=== PATIENT | male | born 1940 | race Caucasian/White ===

== ENCOUNTER 2018-10-06 01:43 | Observation (INO) | payer BC ==
[~2018-10-06] VITALS: Ht 167.6 cm; Wt 81.6 kg
[2018-10-06] VITALS (7 sets, daily range): BP systolic 146–161; BP diastolic 67–94
--- OUTSIDE RECORDS SUMMARY | 2018-10-06 01:46 | XMS REPORT | Summary of Care ---
Author Author [facility] Internal Medicine [facility] [place] [facility] Internal Medicine [facility] [place] Address Unknown Phone Unavailable Encounter MIRZA Lopez(FIN) [phone] Date(s): 08/30/17 - 08/31/17 [facility] Internal Medicine [facility] [place] [address] [facility] [address] [place] [address]- Vital Signs No data available for this section Problem List Condition Effective Dates Status Health Status Informant Angina(Confirmed) Resolved Benign essential Active hypertension1, 2, 3, 4, 5 CAD - Coronary Resolved artery disease(Confirmed) Colitis(Confirmed) Resolved Congestive heart Active failure6, 7 Coronary Active arteriosclerosis8, 9 Crohn Resolved disease(Confirmed) Crohn's pqvydvt33, Active 11 Khyjclo03, 13 08/20/13 Active Hypercholesterolemia Resolved (Confirmed) Ppafcbaypbnezo49, Active 15, 16, 17, 18 Rbvscaogncvite55, Active 20, 21, 22, 23 Iron deficiency 09/25/11 Active gblmuq99, 25 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 2Data migrated from [employer] on 04/20/15. 3Data migrated from [employer] on 04/20/15. 4Data migrated from [employer] on 03/15/15. 5Data migrated from [employer] on 03/15/15. 6Data migrated from [employer] on 05/23/15. 7Data migrated from [employer] on 03/15/15. 8Data migrated from [employer] on 05/23/15. 9Data migrated from [employer] on 03/15/15. 10Data migrated from [employer] on 05/23/15. 11Data migrated from [employer] on 03/15/15. 12Data migrated from [employer] on 05/23/15. 13Data migrated from [employer] on 03/15/15. 14Data migrated from [employer] on 05/23/15. 15Data migrated from [employer] on 04/20/15. 16Data migrated from [employer] on 04/20/15. 17Data migrated from [employer] on 03/15/15. 18Data migrated from [employer] on 03/15/15. 19Data migrated from [employer] on 05/23/15. 20Data migrated from [employer] on 04/20/15. 21Data migrated from [employer] on 04/20/15. 22Data migrated from [employer] on 03/15/15. 23Data migrated from [employer] on 03/15/15. 24Data migrated from [employer] on 05/23/15. 25Data migrated from [employer] on 03/15/15. 26Data migrated from [employer] on 05/23/15. 27Data migrated from [employer] on 04/20/15. 28Data migrated from [employer] on 04/20/15. 29Data migrated from [employer] on 03/15/15. 30Data migrated from [employer] on 03/15/15. 31Data migrated from [employer] on 05/23/15. 32Data migrated from [employer] on 04/20/15. 33Data migrated from [employer] on 04/20/15. 34Data migrated from [employer] on 03/15/15. 35Data migrated from [employer] on 03/15/15. 36Data migrated from [employer] on 05/23/15. 37Data migrated from [employer] on 04/20/15. 38Data migrated from [employer] on 04/20/15. 39Data migrated from [employer] on 03/15/15. 40Data migrated from [employer] on 03/15/15. Allergies, Adverse Reactions, Alerts Substance Reaction Severity Status pork Active soy Diarrhea Active oranges Active banana Active chocolate Active mercaptopurine1 Active Purinethol Active Food Chocolate2 Active Food Citrus3 Active Food Pork4 Active Other Food Allergy5, 6 Active Md 60 Active Food Soybean7 Active canagliflozin8 Active 1Data migrated from [employer] on 02/10/15. Originally documented as PURINETHOL. 2Data migrated from [employer] on 12/09/15. Originally documented as CHOCOLATE. 3Data migrated from [employer] on 12/09/15. Originally documented as ORANGES. 4Data migrated from [employer] on 12/09/15. Originally documented as PORK. 5Data migrated from [employer] on 12/09/15. Originally documented as ONION. 6Data migrated from [employer] on 12/09/15. Originally documented as BANANA. 7Data migrated from [employer] on 12/09/15. Originally documented as SOY. 8Data migrated from [employer] on 02/10/15. Originally documented as INVOKANA. Medications Humalog Kwik Pen 100 units/mL subcutaneous injection See Instructions, # 15 unknown unit, INJECT 30 UNITS SUB-Q TWICE DAILY, Pharmacy : [facility] Start Date: 08/30/17 Status: Ordered Results No data available for this section Immunizations No data available for this section Procedures Procedure Date Related Diagnosis Body Site Stent placement1 Tonsillectomy 73304 Social History Social History Type Response Substance Abuse Use: None. Exercise Exercise duration: 30. Exercise frequency: Daily. Exercise type: Walking, fishing, boating,arm and legs stretching.. Employment/School Status: Employed. Work/School description: Occupation: Retired at [employer]. Other: Maritial Status: to Cleop[employer], Retired Children: none Pets; 4 cats Surrogate Decision Maker: both. Alcohol Never Smoking Status Never smoker; Exposure to Tobacco Smoke None; Cigarette Smoking Last 365 Days No; Reg Smoking Cessation Counseling No Assessment and Plan No data available for this section
--- OUTSIDE RECORDS SUMMARY | 2018-10-06 01:46 | XMS REPORT | Summary of Care ---
Author Author [facility] Internal Medicine [facility] [place] Organization [facility] Internal Medicine [facility] [place] Address Unknown Phone Unavailable Encounter HQ John(FIN) [phone] Date(s): 04/09/18 - 04/10/18 [facility] Internal Medicine [facility] [place] [address] [facility] [address] [place] [address]- Vital Signs No data available for this section Problem List Condition Effective Dates Status Health Status Informant Angina(Confirmed) Resolved Benign essential Active hypertension1, 2, 3, 4, 5 CAD - Coronary Resolved artery disease(Confirmed) Colitis(Confirmed) Resolved Congestive heart Active failure6, 7 Coronary Active arteriosclerosis8, 9 Crohn Resolved disease(Confirmed) Crohn's hnwigys35, Active 11 Waoplvg44, 13 08/20/13 Active Hypercholesterolemia Resolved (Confirmed) Urwpczlppsgvfw64, Active 15, 16, 17, 18 Ggsjpcxzkasrii89, Active 20, 21, 22, 23 Iron deficiency 09/25/11 Active otnsjc73, 25 Mixed Active hyperlipidemia(Confi rmed) 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 Originally documented as INVOKANA. Medications Tirosint 100 mcg (0.1 mg) oral capsule 100 microgram=1 cap, PO, Daily, dispense brand Tirosint, # 90 cap, 0 Refill( s), FANNY, Pharmacy: [facility] Start Date: 04/09/18 Stop Date: 07/08/18 Status: Ordered Results No data available for this section Immunizations No data available for this section Procedures Procedure Date Related Diagnosis Body Site Status Eye examination1 12/13/16 Completed Stent placement2 Completed Tonsillectomy Completed 1Diabetic Eye exam-Cataracts [place]. 60678 Social History Social History Type Response Substance [...] Days No; Reg Smoking Cessation Counseling No entered on: 11/05/17 Assessment and Plan No data available for this section
--- OUTSIDE RECORDS SUMMARY | 2018-10-06 01:46 | XMS REPORT | Summary of Care ---
Author Author [facility] Internal Medicine [facility] [place] Organization [facility] Internal Medicine [facility] [place] Address Unknown Phone Unavailable Encounter MIRZA Lopez(FIN) [phone] Date(s): 11/08/17 - 11/09/17 [facility] Internal Medicine [facility] [place] [address] [facility] [address] [place] [address]- Vital Signs No data available for this section Problem List Condition Effective Dates Status Health Status Informant Angina(Confirmed) Resolved Benign essential Active hypertension1, 2, 3, 4, 5 CAD - Coronary Resolved artery disease(Confirmed) Colitis(Confirmed) Resolved Congestive heart Active failure6, 7 Coronary Active arteriosclerosis8, 9 Crohn Resolved disease(Confirmed) Crohn's mcuqsye07, Active 11 Anoxeki37, 13 08/20/13 Active Hypercholesterolemia Resolved (Confirmed) Fzrmtlfheqtjmj40, Active 15, 16, 17, 18 Fqlsbqtrfbtsmg52, Active 20, 21, 22, 23 Iron deficiency 09/25/11 Active ohhwkw73, 25 Mixed Active hyperlipidemia(Confi rmed) 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 Originally documented as INVOKANA. Medications Tresiba FlexTouch 100 units/mL subcutaneous solution 15 unit, SUB-Q, Daily, Please start with 10 units and increase every 3 days by 2 units until average sugars <110., # 1 box, 5 Refill(s), Pharmacy: [facility] Start Date: 11/21/17 Stop Date: 05/20/18 Status: Ordered Results No data available for this section Immunizations No data available for this section Procedures Procedure Date Related Diagnosis Body Site Status Eye examination1 12/13/16 Completed Stent placement2 Completed Tonsillectomy Completed 1Diabetic Eye exam-Cataracts [place]. [address]342 Social History Social History Type Response Substance [...]
--- OUTSIDE RECORDS SUMMARY | 2018-10-06 01:46 | XMS REPORT | Summary of Care ---
Author Author [facility] Internal Medicine [facility] [place] Organization [facility] Internal Medicine [facility] [place] Address Unknown Phone Unavailable Encounter MIRZA Lopez(FIN) [id number] Date(s): 10/28/17 - 10/29/17 [facility] Internal Medicine [facility] [place] [address] [facility] [address] [place] [address]- Vital Signs No data available for this section Problem List Condition Effective Dates Status Health Status Informant Angina(Confirmed) Resolved Benign essential Active hypertension1, 2, 3, 4, 5 CAD - Coronary Resolved artery disease(Confirmed) Colitis(Confirmed) Resolved Congestive heart Active failure6, 7 Coronary Active arteriosclerosis8, 9 Crohn Resolved disease(Confirmed) Crohn's , Active 11 Jyowxhj86, 13 08/20/13 Active Hypercholesterolemia Resolved (Confirmed) Djhihccmniripl29, Active 15, 16, 17, 18 Ojuqkriwyibexe79, Active 20, 21, 22, 23 Iron deficiency 09/25/11 Active rmgevk67, 25 Mixed Active hyperlipidemia(Confi rmed) 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 Originally documented as INVOKANA. Medications No data available for this section Results ELECTROLYTES Most recent to 2 oldest [Reference Range]: Sodium Lvl [135-146 141 mMol/L 141 mMol/L mMol/L] *N* *N* (10/28/17 1:42 PM) (10/28/17 1:42 PM) Potassium Lvl 4.6 mMol/L 4.6 mMol/L [3.5-5.3 mMol/L] *N* *N* (10/28/17 1:42 PM) (10/28/17 1:42 PM) Chloride Lvl [98-110 103 mMol/L 103 mMol/L mMol/L] *N* *N* (10/28/17 1:42 PM) (10/28/17 1:42 PM) CO2 [20-31 mMol/L] 29 mMol/L 29 mMol/L *N* *N* (10/28/17 1:42 PM) (10/28/17 1:42 PM) CHEM PANEL Most recent to 1 2 oldest [Reference Range]: Creatinine Lvl 1.03 mg/dL 1 1.03 mg/dL 2 [0.70-1.18 mg/dL] *N* *N* (10/28/17 1:42 PM) (10/28/17 1:42 PM) eGFR NON-AFR. 69 mL/min/1.73m2 69 mL/min/1.73m2 ANDORRAN [> OR=60 *N* *N* mL/min/1.73m2] (10/28/17 1:42 PM) (10/28/17 1:42 PM) eGFR 80 mL/min/1.73m2 80 mL/min/1.73m2 ANDORRAN [> OR=60 *N* *N* mL/min/1.73m2] (10/28/17 1:42 PM) (10/28/17 1:42 PM) BUN [7-25 mg/dL] 23 mg/dL 23 mg/dL *N* *N* (10/28/17 1:42 PM) (10/28/17 1:42 PM) B/C Ratio [6-22] NOT APPLICABLE NOT APPLICABLE (10/28/17 1:42 PM) (10/28/17 1:42 PM) Glucose Lvl [65-99 133 mg/dL 3 133 mg/dL 4 mg/dL] *HI* *HI* (10/28/17 1:42 PM) (10/28/17 1:42 PM) Total Protein 6.9 g/dL 6.9 g/dL [6.1-8.1 g/dL] *N* *N* (10/28/17 1:42 PM) (10/28/17 1:42 PM) Albumin Lvl [3.6-5.1 4.3 g/dL 4.3 g/dL g/dL] *N* *N* (10/28/17 1:42 PM) (10/28/17 1:42 PM) Globulin [1.9-3.7 2.6 g/dL 2.6 g/dL g/dL] *N* *N* (10/28/17 1:42 PM) (10/28/17 1:42 PM) A/G Ratio [1.0-2.5 1.7 (CALC) 1.7 (CALC) (CALC)] *N* *N* (10/28/17 1:42 PM) (10/28/17 1:42 PM) Calcium Lvl 9.4 mg/dL 9.4 mg/dL [8.6-10.3 mg/dL] *N* *N* (10/28/17 1:42 PM) (10/28/17 1:42 PM) ALT [9-46 unit/L] 23 unit/L 23 unit/L *N* *N* (10/28/17 1:42 PM) (10/28/17 1:42 PM) AST [10-35 unit/L] 21 unit/L 21 unit/L *N* *N* (10/28/17 1:42 PM) (10/28/17 1:42 PM) Alk Phos [40-115 78 unit/L 78 unit/L unit/L] *N* *N* (10/28/17 1:42 PM) (10/28/17 1:42 PM) Bili Total [0.2-1.2 0.6 mg/dL 0.6 mg/dL mg/dL] *N* *N* (10/28/17 1:42 PM) (10/28/17 1:42 PM) 1Result Comment: For patients >49 years of age, the reference limit for Creatinine is approximately 13% higher for people identified as -Syrian. 2Result Comment: For patients >49 years of age, the reference limit for Creatinine is approximately 13% higher for people identified as -Syrian. 3Result Comment: Fasting reference interval For someone without known diabetes, a glucose value >125 mg/dL indicates that they may have diabetes and this should be confirmed with a follow-up test. [facility] by: [facility] [address] [place] [phone] Misa Bryant MD 4Result Comment: Fasting reference interval For someone without known diabetes, a glucose value >125 mg/dL indicates that they may have diabetes and this should be confirmed with a follow-up test. [facility] by: [facility] [address] [place] [phone] Misa Bryant MD LIPIDS Most recent to 1 2 oldest [Reference Range]: CHD Risk [<5.0 4.6 (CALC) (CALC)] *N* (10/28/17 1:42 PM) Chol [<200 mg/dL] 138 mg/dL 1 *N* (10/28/17 1:42 PM) Trig [<150 mg/dL] 188 mg/dL *HI* (10/28/17 1:42 PM) HDL [>40 mg/dL] 30 mg/dL *LOW* (10/28/17 1:42 PM) LDL (Calculated) 80 mg/dL 2 *N* (10/28/17 1:42 PM) Non HDL Chol [<130 108 mg/dL 3 mg/dL] *N* (10/28/17 1:42 PM) 1Result Comment: Lab test performed by: [facility] [address] [place] [phone] Misa Bryant MD 2Result Comment: Reference range: <100 Desirable range <100 mg/dL for patients with CHD or diabetes and <70 mg/dL for diabetic patients with known heart disease. LDL-C is now calculated using the Cristian-Tuan calculation, which is a validated novel method providing better accuracy than the Friedewald equation in the estimation of LDL-C. Cristian WORKMAN et al. BRENNON. 2013;310(19): 7352-1164 (http://education.Product World/faq/TEB053) 3Result Comment: For patients with diabetes plus 1 major ASCVD risk factor, treating to a non-HDL-C goal of <100 mg/dL (LDL-C of <70 mg/dL) is considered a therapeutic option. SPECIAL CHEMISTRY Most recent to 1 2 oldest [Reference Range]: Hgb A1C [<5.7 %] 7.1 % 1 7.1 % 2 *HI* *HI* (10/28/17 1:42 PM) (10/28/17 1:42 PM) 1Result Comment: For someone without known diabetes, a hemoglobin A1c value of 6.5% or greater indicates that they may have diabetes and this should be confirmed with a follow-up test. For someone with known diabetes, a value <7% indicates that their diabetes is well controlled and a value greater than or equal to 7% indicates suboptimal control. A1c targets should be individualized based on duration of diabetes, age, comorbid conditions, and other considerations. Currently, no consensus exists regarding use of hemoglobin A1c for diagnosis of diabetes for children. Lab test performed by: [facility] [address] [place] [phone] Misa Bryant MD 2Result Comment: For someone without known diabetes, a hemoglobin A1c value of 6.5% or greater indicates that they may have diabetes and this should be confirmed with a follow-up test. For someone with known diabetes, a value <7% indicates that their diabetes is well controlled and a value greater than or equal to 7% indicates suboptimal control. A1c targets should be individualized based on duration of diabetes, age, comorbid conditions, and other considerations. Currently, no consensus exists regarding use of hemoglobin A1c for diagnosis of diabetes for children. Lab [facility] by: [facility] [address] [place] [phone] Misa Bryant MD HEMATOLOGY Most recent to 1 2 oldest [Reference Range]: WBC [3.8-10.8 K/CMM] 10.1 K/CMM 1 10.1 K/CMM 2 *N* *N* (10/28/17 1:42 PM) (10/28/17 1:42 PM) RBC [4.20-5.80 4.35 M/CMM 4.35 M/CMM M/CMM] *N* *N* (10/28/17 1:42 PM) (10/28/17 1:42 PM) Hgb [13.2-17.1 g/dL] 12.6 g/dL 12.6 g/dL *LOW* *LOW* (10/28/17 1:42 PM) (10/28/17 1:42 PM) Hct [38.5-50.0 %] 37.4 % 37.4 % *LOW* *LOW* (10/28/17 1:42 PM) (10/28/17 1:42 PM) MCV [80.0-100.0 fL] 86.0 fL 86.0 fL *N* *N* (10/28/17 1:42 PM) (10/28/17 1:42 PM) MCH [27.0-33.0 pg] 29.0 pg 29.0 pg *N* *N* (10/28/17 1:42 PM) (10/28/17 1:42 PM) MCHC [32.0-36.0 33.7 g/dL 33.7 g/dL g/dL] *N* *N* (10/28/17 1:42 PM) (10/28/17 1:42 PM) RDW [11.0-15.0 %] 13.5 % 13.5 % *N* *N* (10/28/17 1:42 PM) (10/28/17 1:42 PM) MPV [7.5-12.5 fL] 10.9 fL 10.9 fL *N* *N* (10/28/17 1:42 PM) (10/28/17 1:42 PM) Platelet [140-400 196 K/CMM 196 K/CMM K/CMM] *N* *N* (10/28/17 1:42 PM) (10/28/17 1:42 PM) Segs 57.8 % 57.8 % *N* *N* (10/28/17 1:42 PM) (10/28/17 1:42 PM) Lymphocytes 26.5 % 26.5 % *N* *N* (10/28/17 1:42 PM) (10/28/17 1:42 PM) Monocytes 9.3 % 9.3 % *N* *N* (10/28/17 1:42 PM) (10/28/17 1:42 PM) Eosinophils 5.5 % 5.5 % *N* *N* (10/28/17 1:42 PM) (10/28/17 1:42 PM) Basophils 0.9 % 0.9 % *N* *N* (10/28/17 1:42 PM) (10/28/17 1:42 PM) Segs-Bands # 5838 Cells/uL 5838 Cells/uL [2388-5015 Cells/uL] *N* *N* (10/28/17 1:42 PM) (10/28/17 1:42 PM) Lymphocytes # 2677 Cells/uL 2677 Cells/uL [850-3900 Cells/uL] *N* *N* (10/28/17 1:42 PM) (10/28/17 1:42 PM) Monocytes # [200-950 939 Cells/uL 939 Cells/uL Cells/uL] *N* *N* (10/28/17 1:42 PM) (10/28/17 1:42 PM) Eosinophils # 556 Cells/uL 556 Cells/uL [15-500 Cells/uL] *HI* *HI* (10/28/17 1:42 PM) (10/28/17 1:42 PM) Basophils # [0-200 91 Cells/uL 91 Cells/uL Cells/uL] *N* *N* (10/28/17 1:42 PM) (10/28/17 1:42 PM) 1Result Comment: [facility] [address] [place] [phone] Misa Bryant MD 2Result Comment: [facility] performed [facility]: [facility] [address] [place] [phone] Misa Bryant MD Immunizations No data available for this section Procedures Procedure Date Related Diagnosis Body Site Status Eye examination1 12/13/16 Completed Stent placement2 Completed Tonsillectomy Completed 1Diabetic Eye exam-Cataracts [place]. [address] Social History Social History Type Response Substance [...]
--- OUTSIDE RECORDS SUMMARY | 2018-10-06 01:46 | XMS REPORT | Summary of Care ---
Author Author [facility] Internal Medicine [facility] [place] Organization [facility] Internal Medicine [facility] [place] Address Unknown Phone Unavailable Encounter MIRZA Lopez(FIN) [phone] Date(s): 02/25/18 - 02/26/18 [facility] Internal Medicine [facility] [place] [address] [facility] [address] [place] [address]- Vital Signs No data available for this section Problem List Condition Effective Dates Status Health Status Informant Angina(Confirmed) Resolved Benign essential Active hypertension1, 2, 3, 4, 5 CAD - Coronary Resolved artery disease(Confirmed) Colitis(Confirmed) Resolved Congestive heart Active failure6, 7 Coronary Active arteriosclerosis8, 9 Crohn Resolved disease(Confirmed) Crohn's ilhgint37, Active 11 Atqfsas21, 13 08/20/13 Active Hypercholesterolemia Resolved (Confirmed) Wezqiqksowqbaj94, Active 15, 16, 17, 18 Drbwxuziytikkv06, Active 20, 21, 22, 23 Iron deficiency 09/25/11 Active tquxxr58, 25 Mixed Active hyperlipidemia(Confi rmed) 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 vchnwy43, 27, 28, 29, 30 Lrnoueh05, 32, 33, 04/25/11 Active 34, 35 Type II diabetes Active mellitus lmwxrotysapd40, 37, 38, 39, 40 1Data migrated from [...] oral capsule 100 microgram=1 cap, PO, Daily, # 30 cap, 5 Refill(s), Pharmacy: [facility] Start Date: 02/25/18 Stop Date: 08/24/18 Status: Ordered Tirosint 100 mcg (0.1 mg) oral capsule 100 microgram=1 cap, PO, Daily, # 30 cap, 3 Refill(s), Pharmacy: [facility] Start Date: 02/25/18 Status: Ordered Results No data available for this section Immunizations No data available for this section Procedures Procedure Date Related Diagnosis Body Site Status Eye examination1 12/13/16 Completed Stent placement2 Completed Tonsillectomy Completed 1Diabetic Eye exam-Cataracts in [place]. [address]13[address] Social History Social History Type Response Substance [...]
--- OUTSIDE RECORDS SUMMARY | 2018-10-06 01:46 | XMS REPORT | Summary of Care ---
Author Author [facility] Internal Medicine [facility] [place] Organization [facility] Internal Medicine [facility] Address Unknown Phone Unavailable Encounter MIRZA Lopez(FIN) [phone] Date(s): 11/14/17 - 11/15/17 [facility] Internal Medicine [facility] [place] [address] [facility] [address] [place] [address]- Vital Signs No data available for this section Problem List Condition Effective Dates Status Health Status Informant Angina(Confirmed) Resolved Benign essential Active hypertension1, 2, 3, 4, 5 CAD - Coronary Resolved artery disease(Confirmed) Colitis(Confirmed) Resolved Congestive heart Active failure6, 7 Coronary Active arteriosclerosis8, 9 Crohn Resolved disease(Confirmed) Crohn's tbiaxrd13, Active 11 Zxpgtmg14, 13 08/20/13 Active Hypercholesterolemia Resolved (Confirmed) Jieturxlkyjjio52, Active 15, 16, 17, 18 Mfznbgewmhbgvk40, Active 20, 21, 22, 23 Iron deficiency 09/25/11 Active gzaffr77, 25 Mixed Active hyperlipidemia(Confi rmed) 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 ivrriy87, 27, 28, 29, 30 Bddlitq71, 32, 33, 04/25/11 Active 34, 35 Type II diabetes Active mellitus loahtjeybkrn03, 37, 38, 39, 40 1Data migrated from [...] injection See Instructions, # 15 unknown unit, Refill(s) 1, INJECT 30 UNITS SUB-Q TWICE ATIF MYLES, Pharmacy: [facility] Start Date: 11/14/17 Status: Ordered Results No data available for this section Immunizations No data available for this section Procedures Procedure Date Related Diagnosis Body Site Status Eye examination1 12/13/16 Completed Stent placement2 Completed Tonsillectomy Completed 1Diabetic Eye exam-Cataracts in [place]. [address]3979 Social History Social History Type Response Substance [...]
--- OUTSIDE RECORDS SUMMARY | 2018-10-06 01:46 | XMS REPORT | Summary of Care ---
Author Author [facility] Internal Medicine [facility] Organization [facility] Internal [facility] Address Unknown Phone Unavailable Encounter MIRZA Lopez(FIN) [id number] Date(s): 11/08/17 - 11/09/17 [facility] Internal Medicine [facility] [address] [facility] [address] [place] [address]- Vital Signs No data available for this section Problem List Condition Effective Dates Status Health Status Informant Angina(Confirmed) Resolved Benign essential Active hypertension1, 2, 3, 4, 5 CAD - Coronary Resolved artery disease(Confirmed) Colitis(Confirmed) Resolved Congestive heart Active failure6, 7 Coronary Active arteriosclerosis8, 9 Crohn Resolved disease(Confirmed) Crohn's , Active 11 Hzdprdh75, 13 08/20/13 Active Hypercholesterolemia Resolved (Confirmed) Trzwlcmjwfyfpz93, Active 15, 16, 17, 18 Vmngowxgmdnskn90, Active 20, 21, 22, 23 Iron deficiency 09/25/11 Active , 25 Mixed Active hyperlipidemia(Confi rmed) 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 Originally documented as INVOKANA. Medications OneTouch Ultra Blue Blood Glucose Test Strip 1 ea, MIS, Daily, Use for blood glucose monitoring. Fax to [phone], # 100 ea, Insulin dependent, Does not use insulin pump, Last DM eval date 11/05/17, 3 Refill(s) Start Date: 11/08/17 Stop Date: 11/07/21 Status: Ordered Results No data available for this section Immunizations No data available for this section Procedures Procedure Date Related Diagnosis Body Site Status Eye examination1 12/13/16 Completed Stent placement2 Completed Tonsillectomy Completed 1Diabetic Eye exam-Cataracts in [place] eye. [id number] Social History Social History Type Response Substance [...]
--- OUTSIDE RECORDS SUMMARY | 2018-10-06 01:46 | XMS REPORT | Summary of Care ---
Author Author [facility] Internal Medicine [facility] Organization [facility] Internal [facility] Address Unknown Phone Unavailable Encounter MIRZA Lopez(FIN) [id number] Date(s): 10/30/17 - 10/30/17 [facility] Internal Medicine [facility] [address] [facility] [address] [place] [address]- Attending Physician: Kristy Lema MD Vital Signs No data available for this section Problem List Condition Effective Dates Status Health Status Informant Angina(Confirmed) Resolved Benign essential Active hypertension1, 2, 3, 4, 5 CAD - Coronary Resolved artery disease(Confirmed) Colitis(Confirmed) Resolved Congestive heart Active failure6, 7 Coronary Active arteriosclerosis8, 9 Crohn Resolved disease(Confirmed) Crohn's oqljrtj36, Active 11 Prefozy07, 13 08/20/13 Active Hypercholesterolemia Resolved (Confirmed) Rtzfxscedtbbnz68, Active 15, 16, 17, 18 Parmrcuadzzmki55, Active 20, 21, 22, 23 Iron deficiency 09/25/11 Active bcumdn76, 25 Mixed Active hyperlipidemia(Confi rmed) 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 sshduv30, 27, 28, 29, 30 Zvdsdyc49, 32, 33, 04/25/11 Active 34, 35 Type II diabetes Active mellitus dbwmgliidgmo60, 37, 38, 39, 40 1Data migrated from [...] No data available for this section Results No data available for this section Immunizations No data available for this section Procedures Procedure Date Related Diagnosis Body Site Status Eye examination1 12/13/16 Completed Stent placement2 Completed Tonsillectomy Completed 1Diabetic Eye exam-Cataracts in surendra eye. Social History Social History Type Response Substance [...]
--- OUTSIDE RECORDS SUMMARY | 2018-10-06 01:46 | XMS REPORT | Continuity of Care Document ---
Author Author [facility] Interface Address Unknown Phone Unavailable Problems Problem Status Onset Date Classification Date Reported Comments Source Fatigue<sup>12, 13</sup> Active 08/20/2013 Problem 04/13/2018 Data migrated from [employer] on 03/15/15. [facility] Iron deficiency anemia<sup>24, 25</sup> Active 09/25/2011 Problem 04/13/2018 Data migrated from [employer] on 03/15/15. [facility] Obesity<sup>31, 32, 33, 34, 35</sup> Active 04/25/2011 Problem 04/13/2018 Data migrated from [employer] on 03/15/15. [facility] Non-toxic multinodular goiter<sup>26, 27, 28, 29, 30</sup> Active 03/22/2011 Problem 04/13/2018 Data migrated from [employer] on 03/15/15. [facility] Angina Resolved Problem 04/13/2018 [facility] Benign essential hypertension<sup>1, 2, 3, 4, 5</sup> Active Problem 04/13/2018 Data migrated from [employer] on 03/15/15. [facility] CAD - Coronary artery disease Resolved Problem 04/13/2018 [facility] Colitis Resolved Problem 04/13/2018 [facility] Congestive heart failure<sup>6, 7</sup> Active Problem 04/13/2018 Data migrated from [employer] on 03/15/15. [facility] Coronary arteriosclerosis<sup>8, 9</sup> Active Problem 04/13/2018 Data migrated from [employer] on 03/15/15. [facility] Crohn disease Resolved Problem 04/13/2018 [facility] Crohn's disease<sup>10, 11</sup> Active Problem 04/13/2018 Data migrated from [employer] on 03/15/15. [facility] Hypercholesterolemia Resolved Problem 04/13/2018 [facility] Hyperlipidemia<sup>14, 15, 16, 17, 18</sup> Active Problem 04/13/2018 Data migrated from [employer] on 03/15/15. [facility] Hypothyroidism<sup>19, 20, 21, 22, 23</sup> Active Problem 04/13/2018 Data migrated from [employer] on 03/15/15. [facility] Mixed hyperlipidemia Active Problem 04/13/2018 [facility] Type II diabetes mellitus uncontrolled<sup>36, 37, 38, 39, 40</sup> Active Problem 04/13/2018 Data migrated from [employer] on 03/15/15. [facility] Medications Medication Details Route Status Patient Instructions Ordering Provider Order Date Source Levothyroxine Sodium 0.1 MG Oral Capsule [Tirosint] 100 microgram=1 cap, PO, Daily, dispense brand Tirosint, # 90 cap, 0 Refill(s), FANNY, Pharmacy: [facility] Active 04/09/2018 [facility] 3 ML Insulin Lispro 100 UNT/ML Pen Injector [Humalog] See Instructions, # 15 unknown unit, INJECT 30 UNITS SUB-Q TWICE DAILY, Pharmacy: [facility] Active 02/28/2018 [facility] Levothyroxine Sodium 0.1 MG Oral Capsule [Tirosint] 100 microgram=1 cap, PO, Daily, # 30 cap, 5 Refill(s), Pharmacy: [facility] Active 02/25/2018 [facility] 3 ML insulin degludec 100 UNT/ML Pen Injector [Tresiba] 15 unit, SUB-Q, Daily, Please start with 10 units and increase every 3 days by 2 units until average sugars Active 11/21/2017 [facility] 3 ML Insulin Lispro 100 UNT/ML Pen Injector [Humalog] See Instructions, # 15 unknown unit, Refill(s) 1, INJECT 30 UNITS SUB-Q TWICE DAILY, Pharmacy: [facility] [address] Active 11/14/2017 [facility] OneTouch Ultra Blue Blood Glucose Test Strip 1 ea, [facility], Daily, Use for blood glucose monitoring. Fax to [phone], # 100 ea, Insulin dependent, Does not use insulin pump, Last DM eval date 11/05/17, 3 Refill(s) Active 11/08/2017 [facility] 3 ML Insulin Lispro 100 UNT/ML Pen Injector [Humalog] See Instructions, # 15 unknown unit, INJECT 30 UNITS SUB-Q TWICE DAILY, Pharmacy: [facility] [address] Active 08/30/2017 [facility] Allergies, Adverse Reactions, Alerts Substance Category Reaction Severity Reaction type Status Date Reported Comments Source soy Assertion Diarrhea Propensity to adverse reactions to food Active 07/04/1999 [facility] mercaptopurine<sup>1</sup> Assertion Drug allergy Active 03/22/2011 Data migrated from [employer] on 02/10/15. Originally documented as PURINETHOL. [facility] Food Chocolate<sup>2</sup> Assertion Drug allergy Active 03/22/2011 Data migrated from [employer] on 12/09/15. Originally documented as CHOCOLATE. [facility] Food [place]<sup>3</sup> Assertion Drug allergy Active 03/22/2011 Data migrated from [employer] on 12/09/15. Originally documented as ORANGES. [facility] Food Pork<sup>4</sup> Assertion Drug allergy Active 03/22/2011 Data migrated from [employer] on 12/09/15. Originally documented as PORK. [facility] Other Food Allergy<sup>5, 6</sup> Assertion Drug allergy Active 03/22/2011 Data migrated from [employer] on 12/09/15. Originally documented as BANANA. [facility] Food Soybean<sup>7</sup> Assertion Drug allergy Active 03/22/2011 Data migrated from [employer] on 12/09/15. Originally documented as SOY. [facility] canagliflozin<sup>8</sup> Assertion Drug allergy Active 06/24/2014 Data migrated from [employer] on 02/10/15. Originally documented as INVOKANA. [facility] pork Assertion Propensity to adverse reactions to food Active [facility] oranges Assertion Propensity to adverse reactions to food Active [facility] banana Assertion Propensity to adverse reactions to food Active [facility] chocolate Assertion Propensity to adverse reactions to food Active [facility] Purinethol Assertion Drug allergy Active [facility] Md 60 Assertion Drug allergy Active [facility] Immunizations Immunization Date Given Site Status Last Updated Comments Source Results Order Name Results Value Reference Range Date Interpretation Comments Source CHEM PANEL Calcium Lvl 9.4 mg/dL 8.6 - 10.3 10/28/2017 [facility] CHEM PANEL CO2 29 mMol/L 20 - 31 10/28/2017 [facility] CHEM PANEL Total Protein 6.9 g/dL 6.1 - 8.1 10/28/2017 [facility] CHEM PANEL A/G Ratio 1.7 (CALC) 1.0 - 2.5 10/28/2017 [facility] CHEM PANEL Globulin 2.6 g/dL 1.9 - 3.7 10/28/2017 [facility] CHEM PANEL Bili Total 0.6 mg/dL 0.2 - 1.2 10/28/2017 [facility] CHEM PANEL Albumin Lvl 4.3 g/dL 3.6 - 5.1 10/28/2017 [facility] CHEM PANEL Alk Phos 78 unit/L 40 - 115 10/28/2017 [facility] CHEM PANEL ASPARTATE TRANSAMINASE 21 unit/L 10 - 35 10/28/2017 [facility] CHEM PANEL ALANINE AMINOTRANSFERASE 23 unit/L 9 - 46 10/28/2017 [facility] CHEM PANEL Glucose Lvl 133 mg/dL 65 - 99 10/28/2017 Result Comment: Fasting reference interval For someone without known diabetes, a glucose value >125 mg/dL indicates that they may have diabetes and this should be confirmed with a follow-up test. [facility] test performed by: [facility] [address] [place] [phone] Misa Bryant MD [facility] CHEM PANEL BUN 23 mg/dL 7 - 25 10/28/2017 [facility] CHEM PANEL Creatinine Lvl 1.03 mg/dL 0.70 - 1.18 10/28/2017 Result Comment: For patients >49 years of age, the reference limit for Creatinine is approximately 13% higher for people identified as -Czech. [facility] CHEM PANEL eGFR NON-AFR. [place] 69 mL/min/1.73m2 > OR=60 mL/min/1.73m2 10/28/2017 [facility] CHEM PANEL eGFR 80 mL/min/1.73m2 > OR=60 mL/min/1.73m2 10/28/2017 [facility] CHEM PANEL B/C Ratio NOT APPLICABLE 6 - 22 10/28/2017 [facility] CHEM PANEL Sodium Lvl 141 mMol/L 135 - 146 10/28/2017 [facility] CHEM PANEL Chloride Lvl 103 mMol/L 98 - 110 10/28/2017 [facility] CHEM PANEL Potassium Lvl 4.6 mMol/L 3.5 - 5.3 10/28/2017 [facility] HEMATOLOGY Lymphocytes # 2677 Cells/uL 850 - 3900 10/28/2017 [facility] HEMATOLOGY RDW 13.5 % 11.0 - 15.0 10/28/2017 [facility] HEMATOLOGY MCHC 33.7 g/dL 32.0 - 36.0 10/28/2017 [facility] HEMATOLOGY Segs-Bands # 5838 Cells/uL 1500 - 7800 10/28/2017 [facility] HEMATOLOGY Basophils # 91 Cells/uL 0 - 200 10/28/2017 [facility] HEMATOLOGY Monocytes # 939 Cells/uL 200 - 950 10/28/2017 [facility] HEMATOLOGY Eosinophils # 556 Cells/uL 15 - 500 10/28/2017 [facility] HEMATOLOGY Platelet 196 K/CMM 140 - 400 10/28/2017 [facility] HEMATOLOGY MPV 10.9 fL 7.5 - 12.5 10/28/2017 [facility] HEMATOLOGY Monocytes 9.3 % 10/28/2017 [facility] HEMATOLOGY Segs 57.8 % 10/28/2017 [facility] HEMATOLOGY Lymphocytes 26.5 % 10/28/2017 [facility] HEMATOLOGY Basophils 0.9 % 10/28/2017 [facility] HEMATOLOGY Eosinophils 5.5 % 10/28/2017 [facility] HEMATOLOGY MCV 86.0 fL 80.0 - 100.0 10/28/2017 [facility] HEMATOLOGY Hct 37.4 % 38.5 - 50.0 10/28/2017 [facility] HEMATOLOGY MCH 29.0 pg 27.0 - 33.0 10/28/2017 [facility] HEMATOLOGY WBC X 10x3 10.1 K/CMM 3.8 - 10.8 10/28/2017 Result Comment: [facility] test performed by: [facility] [address] [place] [address] Misa Bryant MD [facility] HEMATOLOGY RBC X 10x6 4.35 M/CMM 4.20 - 5.80 10/28/2017 [facility] HEMATOLOGY Hgb 12.6 g/dL 13.2 - 17.1 10/28/2017 [facility] LIPIDS LDL (Calculated) 80 mg/dL 10/28/2017 Result Comment: Reference range: <100 Desirable range <100 mg/dL for patients with CHD or diabetes and <70 mg/dL for diabetic patients with known heart disease. LDL-C is now calculated using the Jonah calculation, which is a validated novel method providing better accuracy than the Friedewald equation in the estimation of LDL-C. Cristian WORKMAN et al. BRENNON. 2013;310(19): 3275-7389 (http://education.SnapSense/faq/YNN613) [facility] LIPIDS Trig 188 mg/dL <150 mg/dL 10/28/2017 [facility] LIPIDS Non HDL Chol 108 mg/dL <130 mg/dL 10/28/2017 Result Comment: For patients with diabetes plus 1 major ASCVD risk factor, treating to a non-HDL-C goal of <100 mg/dL (LDL-C of <70 mg/dL) is considered a therapeutic option. [facility] LIPIDS CHD Risk 4.6 (CALC) <5.0 (CALC) 10/28/2017 [facility] LIPIDS Chol 138 mg/dL <200 mg/dL 10/28/2017 Result Comment: Lab test performed by: [facility] [address] [place] [phone] Misa Bryant MD [facility] LIPIDS HDL 30 mg/dL >40 mg/dL 10/28/2017 [facility] SPECIAL CHEMISTRY Hgb A1C 7.1 % <5.7 % 10/28/2017 Result Comment: For someone without known diabetes, a [...] diabetes for children. Lab test performed by: [facility] [address] [place] [phone] Misa Bryant MD [facility] SPECIAL CHEMISTRY Lymphocytes # 2677 Cells/uL 850 - 3900 10/28/2017 [facility] SPECIAL CHEMISTRY RDW 13.5 % 11.0 - 15.0 10/28/2017 [facility] SPECIAL CHEMISTRY MCHC 33.7 g/dL 32.0 - 36.0 10/28/2017 [facility] SPECIAL CHEMISTRY Segs-Bands # 5838 Cells/uL 1500 - 7800 10/28/2017 [facility] SPECIAL CHEMISTRY Basophils # 91 Cells/uL 0 - 200 10/28/2017 [facility] SPECIAL CHEMISTRY Monocytes # 939 Cells/uL 200 - 950 10/28/2017 [facility] SPECIAL CHEMISTRY Eosinophils # 556 Cells/uL 15 - 500 10/28/2017 [facility] SPECIAL CHEMISTRY Platelet 196 K/CMM 140 - 400 10/28/2017 [facility] SPECIAL CHEMISTRY MPV 10.9 fL 7.5 - 12.5 10/28/2017 [facility] SPECIAL CHEMISTRY Monocytes 9.3 % 10/28/2017 [facility] SPECIAL CHEMISTRY Segs 57.8 % 10/28/2017 [facility] SPECIAL CHEMISTRY Lymphocytes 26.5 % 10/28/2017 [facility] SPECIAL CHEMISTRY Basophils 0.9 % 10/28/2017 [facility] SPECIAL CHEMISTRY Eosinophils 5.5 % 10/28/2017 [facility] SPECIAL CHEMISTRY MCV 86.0 fL 80.0 - 100.0 10/28/2017 [facility] SPECIAL CHEMISTRY Hct 37.4 % 38.5 - 50.0 10/28/2017 [facility] SPECIAL CHEMISTRY MCH 29.0 pg 27.0 - 33.0 10/28/2017 [facility] SPECIAL CHEMISTRY WBC X 10x3 10.1 K/CMM 3.8 - 10.8 10/28/2017 Result Comment: Lab test performed by: [facility] [address] [place] [phone] Misa Bryant MD [facility] SPECIAL CHEMISTRY RBC X 10x6 4.35 M/CMM 4.20 - 5.80 10/28/2017 [facility] SPECIAL CHEMISTRY Hgb 12.6 g/dL 13.2 - 17.1 10/28/2017 [facility] SPECIAL CHEMISTRY Calcium Lvl 9.4 mg/dL 8.6 - 10.3 10/28/2017 [facility] SPECIAL CHEMISTRY CO2 29 mMol/L 20 - 31 10/28/2017 [facility] SPECIAL CHEMISTRY Total Protein 6.9 g/dL 6.1 - 8.1 10/28/2017 [facility] SPECIAL CHEMISTRY A/G Ratio 1.7 (CALC) 1.0 - 2.5 10/28/2017 [facility] SPECIAL CHEMISTRY Globulin 2.6 g/dL 1.9 - 3.7 10/28/2017 [facility] SPECIAL CHEMISTRY Bili Total 0.6 mg/dL 0.2 - 1.2 10/28/2017 [facility] SPECIAL CHEMISTRY Albumin Lvl 4.3 g/dL 3.6 - 5.1 10/28/2017 [facility] SPECIAL CHEMISTRY Alk Phos 78 unit/L 40 - 115 10/28/2017 [facility] SPECIAL CHEMISTRY ASPARTATE TRANSAMINASE 21 unit/L 10 - 35 10/28/2017 [facility] SPECIAL CHEMISTRY ALANINE AMINOTRANSFERASE 23 unit/L 9 - 46 10/28/2017 [facility] SPECIAL CHEMISTRY Glucose Lvl 133 mg/dL 65 - 99 10/28/2017 Result Comment: Fasting reference interval For someone without known diabetes, a glucose value >125 mg/dL indicates that they may have diabetes and this should be confirmed with a follow-up test. Lab test performed [facility]: [facility] [address] [place] [phone] Misa Bryant MD [facility] SPECIAL CHEMISTRY BUN 23 mg/dL 7 - 25 10/28/2017 [facility] SPECIAL CHEMISTRY Creatinine Lvl 1.03 mg/dL 0.70 - 1.18 10/28/2017 Result Comment: For patients >49 years of age, the reference limit for Creatinine is approximately 13% higher for people identified as -Czech. [facility] SPECIAL CHEMISTRY eGFR NON-AFR. [place] 69 mL/min/1.73m2 > OR=60 mL/min/1.73m2 10/28/2017 [facility] SPECIAL CHEMISTRY eGFR 80 mL/min/1.73m2 > OR=60 mL/min/1.73m2 10/28/2017 [facility] SPECIAL CHEMISTRY B/C Ratio NOT APPLICABLE 6 - 10/28/2017 [facility] SPECIAL CHEMISTRY Sodium Lvl 141 mMol/L 135 - 146 10/28/2017 [facility] SPECIAL CHEMISTRY Chloride Lvl 103 mMol/L 98 - 110 10/28/2017 [facility] SPECIAL CHEMISTRY Potassium Lvl 4.6 mMol/L 3.5 - 5.3 10/28/2017 [facility] Vital Signs Vital Sign Value Date Comments Source Encounters Location Location Details Encounter Type Encounter Number Reason For Visit Attending Provider ADM Date DC Date Status Source Outpatient [id number] ANTWAN [place] 08/22/2015 [facility] Outpatient [id number] ANTWAN [place] 08/08/2016 Active [facility] Phone Message [id number] 08/30/2017 09/01/2017 [facility] Phone Message [id number] 10/28/2017 10/30/2017 [facility] Outpatient [id number] ANTWAN [place] 10/30/2017 Active [facility] Ambulatory Pre-Reg [id number] Antwan [place] 10/30/2017 10/30/2017 [facility] Outpatient [id number] ANTWAN [place] 11/05/2017 Active [facility] Phone Message [id number] 11/08/2017 11/10/2017 [facility] Phone Message [id number] 11/08/2017 11/10/2017 [facility] Phone Message [id number] 11/14/2017 11/16/2017 [facility] Phone Message [id number] 02/25/2018 02/27/2018 [facility] Phone Message [id number] 02/28/2018 03/02/2018 [facility] Phone Message [id number] 04/09/2018 04/11/2018 [facility] Group Outpatient [id number] ANTWAN [place] 05/29/2018 Active [facility] Outpatient [id number] ANTWAN [place] 08/07/2018 Active [facility] Outpatient [id number] ANTWAN [place] 10/15/2018 Active [facility] Procedures Procedure Code Date Perfomer Comments Source Eye examination<sup>1</sup> [id number] 12/13/2016 Diabetic Eye exam-Cataracts in surendra eye. [facility] Stent placement<sup>2</sup> [id number] 2000 [facility] Tonsillectomy [id number] [facility] Stent placement<sup>1</sup> [id number] 2000 [facility]
--- OUTSIDE RECORDS SUMMARY | 2018-10-06 01:46 | XMS REPORT | Summary of Care ---
Author Author [facility] Internal Medicine [facility] [place] Organization [facility] Internal Medicine [facility] [place] Address Unknown Phone Unavailable Encounter MIRZA Lopez(FIN) [id number] Date(s): 02/28/18 - 03/01/18 [facility] Internal Medicine [facility] [place] [address] [facility] [address] [place] [address]- Vital Signs No data available for this section Problem List Condition Effective Dates Status Health Status Informant Angina(Confirmed) Resolved Benign essential Active hypertension1, 2, 3, 4, 5 CAD - Coronary Resolved artery disease(Confirmed) Colitis(Confirmed) Resolved Congestive heart Active failure6, 7 Coronary Active arteriosclerosis8, 9 Crohn Resolved disease(Confirmed) Crohn's , Active 11 Egfievw75, 13 08/20/13 Active Hypercholesterolemia Resolved (Confirmed) Paccwgdhlcfzaj88, Active 15, 16, 17, 18 Uxfmsysgpxract12, Active 20, 21, 22, 23 Iron deficiency 09/25/11 Active xlegmi82, 25 Mixed Active hyperlipidemia(Confi rmed) 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 tzosba27, 27, 28, 29, 30 Twvjfol82, 32, 33, 04/25/11 Active 34, 35 Type II diabetes Active mellitus wwzlphjxygpz61, 37, 38, 39, 40 1Data migrated from [...] 30 UNITS SUB-Q TWICE DAILY, Pharmacy : [facility] Start Date: 02/28/18 Status: Ordered Results No data available for this section Immunizations No data available for this section Procedures Procedure Date Related Diagnosis Body Site Status Eye examination1 12/13/16 Completed Stent placement2 Completed Tonsillectomy Completed 1Diabetic Eye exam-Cataracts in [place]. [address] Social History Social History Type Response Substance [...]
[2018-10-06] MEDS ORDERED: MORPHINE SULFATE INJ 4 MG/ML INJ IV STA (02:55)
[2018-10-06] MEDS ORDERED: SODIUM CHLORIDE 0.9% 1000ML 1,000 ML IV STA (02:55)
[2018-10-06] MEDS ORDERED: HYDRALAZINE HCL 20 MG/ML VIAL IV STA (02:55)
[2018-10-06] MEDS ORDERED: ONDANSETRON HCL INJ 2 MG/ML VIAL IV STA (02:55)
[2018-10-06 03:53] LABS: BASOPHILS # (AUTO) 0.1 (0.0-0.1); BASOPHILS % 0.6 % (0.0-1.0); EOSINOPHILS # (AUTO) 0.1 (0.0-0.4); EOSINOPHILS % 0.7 % (0.0-6.0); HEMATOCRIT 44.3 % (38.2-49.6); HEMOGLOBIN 14.8 g/dL (14.0-18.0); LYMPHOCYTES % 13.6 % (18.0-39.1); MEAN CORPUSCULAR HEMOGLOBIN 29.1 pg (28-32); MEAN CORPUSCULAR HGB CONC 33.4 g/dL (31-35); MEAN CORPUSCULAR VOLUME 87.2 fL (81-99); MONOCYTES # (AUTO) 0.8 (0.2-0.8); MONOCYTES % 5.5 % (4.4-11.3); NEUTROPHILS # (AUTO) 11.8 (2.1-6.9); NEUTROPHILS % 78.8 % (38.7-80.0); PLATELET COUNT 274 x10e3/uL (140-360); RED BLOOD COUNT 5.08 x10e6/uL (4.3-5.7); RED CELL DISTRIBUTION WIDTH 12.9 % (11.7-14.4)
[2018-10-06 04:14] LABS: ALBUMIN 4.8 g/dL (3.5-5.0); ALBUMIN/GLOBULIN RATIO 1.2 (0.8-2.0); ANION GAP 16.8 mmol/L (8-16); CALCIUM 10.6 mg/dL (8.4-10.2); CREATININE, SERUM 1.44 mg/dL (0.72-1.25); POTASSIUM 3.8 mmol/L (3.5-5.1)
--- NOTE | 2018-10-06 04:31 | Diagnostic Imaging Report ---
EXAM: CT ABDOMEN/PELVIS WO DATE: 10/06/2018 2:55 AM INDICATION: Abdominal pain, left flank COMPARISON: None TECHNIQUE: The abdomen and pelvis were scanned using a multidetector helical scanner. Coronal and sagittal reformations were obtained. CT low dose techniques were utilized, as applicable. IV Contrast: 0 ml Isovue 300/370 FINDINGS: Lack of IV contrast decreases sensitivity in evaluating abdominal and pelvic organs. LOWER THORAX: Nonspecific 5 mm right lower lobe nodule and lingular nodular atelectasis/scar. Coronary artery calcifications. LIVER/BILIARY: No masses. No ductal dilatation. GALLBLADDER: Unremarkable SPLEEN: Unremarkable PANCREAS: Unremarkable ADRENALS: No nodules KIDNEYS: A 7 mm stone is seen in the right renal pelvis and a 3 to 4 mm stone is seen in the distal left ureter. Bilateral extrarenal pelvis or pelviectasis without hydronephrosis. Marked perinephric stranding. GI TRACT: Small hiatal hernia. There is moderate diffuse dilation of the colon with gradual transition at the sigmoid colon. Mild wall thickening proximally and thumbprinting evident on increment manager. The cecum measures up to 6.1 cm with admixed stool contents. Normal appendix. VESSELS: Severe atherosclerotic calcifications PERITONEUM/RETROPERITONEUM: No free air or fluid LYMPH NODES: No lymphadenopathy REPRODUCTIVE ORGANS/BLADDER: Distended bladder SOFT TISSUES: Small fat-containing umbilical hernia and right inguinal hernia. BONES: Multilevel degenerative changes. IMPRESSION: 1. Moderate colonic dilation and slight wall thickening suggestive of colitis and/or colonic ileus. No evidence of obstructing mass. Consider follow up colonoscopy. 2. Distended urinary bladder and nonspecific marked bilateral perinephric stranding. Correlate with urinalysis. 3. Nonobstructing 7 mm right renal pelvis stone. Nonobstructing 3 to 4 mm distal left ureteral stone. Signed by: Dr Esther Bee MD on 10/06/2018 4:28 AM
[2018-10-06] MEDS ORDERED: METRONIDAZOLE 500MG/NS 100ML 100 ML IV STA ×2 (04:34→04:35)
[2018-10-06] MEDS ORDERED: CIPROFLOXACIN 400 MG/D5W 200ML 200 ML IV STA ×2 (04:34→04:35)
[2018-10-06] MEDS ORDERED: ONDANSETRON HCL INJ 2 MG/ML VIAL IV PRN (04:45)
[2018-10-06] MEDS ORDERED: MORPHINE SULFATE 2 MG/ML SYR IV PRN (04:45)
[2018-10-06 04:48] LABS: BILIRUBIN,URINE NEGATIVE (NEGATIVE); CLARITY,URINE CLEAR (CLEAR); COLOR,URINE YELLOW (YELLOW); KETONES,URINE TRACE (NEGATIVE); LEUKOCYTE ESTERASE ,URINE NEGATIVE (NEGATIVE); NITRITE,URINE NEGATIVE (NEGATIVE); PROTEIN,URINE DIPSTICK 3+ (NEGATIVE); URINE UROBILINOGEN 0.2 mg/dL (0.2 - 1)
[2018-10-06 04:49] LABS: BACTERIA,URINE FEW /HPF; EPITHELIAL CELLS,URINE RARE /LPF; WBC,URINE (MAN) 0-5 /HPF (0-5)
[2018-10-06 05:07] LABS: CREATINE KINASE MB 2.3 ng/mL (0-5.0)
--- OUTSIDE RECORDS SUMMARY | 2018-10-06 05:49 | XMS REPORT ---
[facility] Address Unknown Phone Unavailable Care Team Providers Care Loan Review Analyst Name Role Phone Cecilia CHARLES Unavailable Unavailable Problems This patient has no known problems. Allergies, Adverse Reactions, Alerts This patient has no known allergies or adverse reactions. Medications This patient has no known medications. Results Test Description Test Time Test Comments Text Results Atomic Results Result Comments CT ABDOMEN/PELVIS WO 2018-10-06 04:14:00 [place] [address] Patient Name: KYLAH MITCHELL MR #: [id number] : 1940 Age/Sex: 77/M Req #: [id number] Adm Physician: Ordered by: RHETT CHARLES MD Report #: [id number] Location: ER Room/Bed: Procedure: [id number] CT/CT ABDOMEN/PELVIS WO Exam Date: 10/06/18 Exam Time: 0349 REPORT STATUS: Signed EXAM: CT ABDOMEN/PELVIS WO DATE: 10/06/2018 2:55 AM INDICATION: Abdominal pain, left flank COMPARISON: None TECHNIQUE: The abdomen and pelvis were scanned using a multidetector helical scanner. Coronal and sagittal reformations were obtained. CT low dose techniques were utilized, as applicable. IV Contrast: 0 ml Isovue 300/370 FINDINGS: Lack of IV contrast decreases sensitivity in evaluating abdominal and pelvic organs. LOWER THORAX: Nonspecific 5 mm right lower lobe nodule and lingular nodular atelectasis/scar. Coronary artery calcifications. LIVER/BILIARY: No masses. No ductal dilatation. GALLBLADDER: Unremarkable SPLEEN: Unremarkable PANCREAS: Unremarkable ADRENALS: No nodules KIDNEYS: A 7 mm stone is seen in the right renal pelvis and a 3 to 4 mm stone is seen in the distal left ureter. Bilateral extrarenal pelvis or pelviectasis without hydronephrosis. Marked perinephric stranding. GI TRACT: Small hiatal hernia. There is moderate diffuse dilation of the colon with gradual transition at the sigmoid colon. Mild wall thickening proximally and thumbprinting evident on tool lapper hand. The cecum measures up to 6.1 cm with admixed stool contents. Normal appendix. VESSELS: Severe atherosclerotic calcifications PERITONEUM/RETROPERITONEUM: No free air or fluid LYMPH NODES: No lymphadenopathy REPRODUCTIVE ORGANS/BLADDER: Distended bladder SOFT TISSUES: Small fat-containing umbilical hernia and right inguinal hernia. BONES: Multilevel degenerative changes. IMPRESSION: 1. Moderate colonic dilation and slight wall thickening suggestive of colitis and/or colonic ileus. No evidence of obstructing mass. Consider follow up colonoscopy. 2. Distended urinary bladder and nonspecific marked bilateral perinephric stranding. Correlate with urinalysis. 3. Nonobstructing 7 mm right renal pelvis stone. Nonobstructing 3 to 4 mm distal left ureteral stone. Signed by: Dr Gregory Bee MD on 10/06/2018 4:28 AM Dictated By: GREGORY BEE MD 7 Transcribed By: SARAI on 10/06/18427 COPY TO: RHETT CHARLES MD
--- NOTE | 2018-10-06 07:01 | NUR ---
walking rounds with celena johnson
[2018-10-06] MEDS ORDERED: DEXTROSE 50% SYRINGE 50 ML IV PRN (08:15)
--- NOTE | 2018-10-06 08:47 | NUR ---
CLOTHES REMOVED, PATIENT PLACED IN GOWN. SITTING UP IN BED DRINKING CLEAR LIQUID DIET
[2018-10-06] MEDS: INSULIN REGULAR, HUMAN 100 UNIT/1 ML 3ML VIAL SQ SCH ×4 (08:54→21:00)
--- NOTE | 2018-10-06 09:45 | NUR ---
RECEIVED PT FROM ER VIA STRETCHER
--- NOTE | 2018-10-06 10:20 | NUR ---
NOTIFIED PT ON UNIT AND STATUS
[2018-10-06] MEDS ORDERED: HUMALOG100 UNIT/3 SQ (10:26)
[2018-10-06] MEDS ORDERED: NIFEDIPINE ER30 M1 PO (10:26)
[2018-10-06] MEDS ORDERED: LEVOTHYROXINE100 MC1 PO (10:26)
[2018-10-06] MEDS ORDERED: PROPRANOLOL HC160 MG PO (10:26)
[2018-10-06] MEDS ORDERED: INSULIN LISPRO 100 UNIT/1 ML 3ML VIAL SQ SCH (13:00)
[2018-10-06] MEDS ORDERED: SODIUM CHLORIDE 0.9% 1000ML 1,000 ML IV SCH (13:00)
--- NOTE | 2018-10-06 13:49 | NUR ---
ONLY 15UNITS OF HUMALOG GIVEN, PT STATES HE ONLY TAKEN 30 UNITS DEPENDING ON HIS DIET AND HIS ACTIVITIES FOR THE DAY.
[2018-10-06 13:59] LABS: CHOL/HDL RATIO 4.4 (3.9-4.7)
--- NOTE | 2018-10-06 16:33 | NUR ---
PT TRANSFERRED TO ROOM 183. RN TO RESUME CARE
[2018-10-06] MEDS ORDERED: LEVAQUIN500 MG PO (18:51)
[2018-10-06] MEDS ORDERED: PROTONIX40 MG/ML PO (18:51)
[2018-10-06] MEDS ORDERED: FLAGYL500 MG PO (18:51)
[2018-10-06] MEDS ORDERED: ZOFRAN4 MG PO (18:51)
[2018-10-06] MEDS ORDERED: PANTOPRAZOLE SOD 40 MG TABEC PO SCH (19:00)
--- NOTE | 2018-10-06 19:19 | NUR ---
REPORT GIVEN TO ONCOMING NURSE
--- NOTE | 2018-10-06 19:22 | NUR ---
Report received and walking rounds complete. Pt A&O and in no apparent distress. Pt on RA and no tele. All safety measures ensured, bed alarm on, and pt call [place] near. Pt encouraged to use call [place] for assistance.
[2018-10-06 19:34] LABS: BASOPHILS # (AUTO) 0.1 (0.0-0.1); BASOPHILS % 0.7 % (0.0-1.0); EOSINOPHILS # (AUTO) 0.4 (0.0-0.4); HEMATOCRIT 35.4 % (38.2-49.6); HEMOGLOBIN 11.9 g/dL (14.0-18.0); MEAN CORPUSCULAR HGB CONC 33.6 g/dL (31-35); MEAN CORPUSCULAR VOLUME 86.3 fL (81-99); MONOCYTES # (AUTO) 1.3 (0.2-0.8); MONOCYTES % 13.1 % (4.4-11.3); NEUTROPHILS # (AUTO) 6.3 (2.1-6.9); NEUTROPHILS % 61.7 % (38.7-80.0); PLATELET COUNT 198 x10e3/uL (140-360); RED CELL DISTRIBUTION WIDTH 13.1 % (11.7-14.4)
--- NOTE | 2018-10-06 19:43 | History and Physical ---
PRIMARY CARE PHYSICIAN: Dr. Edil Fernnades, GI specialist at [facility]. CHIEF COMPLAINT: Abdominal/flank pain. HISTORY OF PRESENT ILLNESS: This is a 77-year-old man with a history of Crohn's disease, now developing left flank discomfort radiating to his left abdomen. He came to the hospital. He also has symptoms of nausea and vomiting. Here, he was found to have acute colitis and also found to have left ureterolithiasis and right nephrolithiasis, admitted for further evaluation and management. He has no bleeding. Hemoglobin A1c is 6.5. His diabetes is well controlled. His LDL is 190 and triglycerides 130. PAST MEDICAL HISTORY: Diabetes mellitus, Crohn's disease, nephrolithiasis, hypothyroidism, peripheral edema. PAST SURGICAL HISTORY: Knee surgery. ALLERGIES: PER ELECTRONIC MEDICAL RECORD. FAMILY AND SOCIAL HISTORY: Patient is , has no children. No alcohol, illicits, or cigarettes. MEDICATIONS: Per electronic medical record. REVIEW OF SYSTEMS: Denies any fevers, chills, or sweats. Denies any headache, vision changes, leg pain, or chest pain. PHYSICAL EXAMINATION VITAL SIGNS: Have been reviewed. GENERAL: A tired-appearing man, resting in bed. HEENT: Anicteric. Pupils reactive to light. No oral lesions. CARDIOVASCULAR: Normal S1 and S2. LUNGS: Moderate breath sounds. ABDOMEN: Soft, nondistended. He has minimal tenderness in the left abdomen. Left flank nontender. EXTREMITIES: He has trace to 1+ edema bilaterally. SKIN: Dry. PSYCHIATRIC: Flat affect. NEUROLOGIC: Alert and oriented x3, moving all extremities. LABS: Reviewed. MEDICATIONS: Reviewed. ASSESSMENT: This is a 77-year-old man with: 1. Acute colitis. 2. Acute Crohn's exacerbation. 3. Hypertensive emergency. 4. Acute kidney injury, possibly secondary to dehydration and acute tubular necrosis. 5. Right nephrolithiasis. 6. Left ureterolithiasis. 7. Dehydration. 8. Diabetes mellitus type 2. 9. Hypothyroidism. 10. Peripheral edema. PLAN 1. Rehydrate the patient. 2. Antibiotics, he received Cipro and Flagyl. 3. Control blood pressure. Currently, blood pressure is improved down to 146/68. 4. Check hemoglobin A1c and lipid panel. 1. TSH is normal. 2. He is on SCD and PPI. 3. Disposition. If patient tolerates diet, theoretically he could go home today and followup closely outpatient in the next 2 or 3 days. Job#: [id number] MARVIN
[2018-10-06 19:51] LABS: ANION GAP 14.3 mmol/L (8-16); BLOOD UREA NITROGEN 19 mg/dL (7-26); BUN/CREATININE RATIO 17 (6-25); CALCIUM 8.7 mg/dL (8.4-10.2); CARBON DIOXIDE 24 mmol/L (22-29); CHLORIDE 102 mmol/L (98-107); CREATININE, SERUM 1.11 mg/dL (0.72-1.25); EST GLOMERULAR FILTRATION RATE > 60 ML/MIN (60-); GLUCOSE 115 mg/dL (74-118); POTASSIUM 3.3 mmol/L (3.5-5.1); SODIUM 137 mmol/L (136-145)
--- NOTE | 2018-10-06 20:49 | NUR ---
Called Dr. Loza to report pt lab results. gave ok for pt to be discharged. Order for +K 60 mEq given and instructions for pt. left rx for pt as well.
[2018-10-06] MEDS ORDERED: POTASSIUM CHLORIDE 20 MEQ TAB CR PO SCH (21:00)
--- NOTE | 2018-10-06 22:31 | NUR ---
Pt discharged. Pt A&O and in no apparent distress. Paperwork signed and pt verbalized understanding. Pt given prescriptions as well. Pt IV discontinued. Pt escorted to ER pickup area by staff member and pt picked up by family friend.
--- NOTE | 2018-10-07 06:08 | NUR ---
DIscharge summary Principal Dx: ASSESSMENT: This is a 77-year-old man with: 1. Acute colitis. 2. Acute Crohn's exacerbation. 3. Hypertensive emergency. 4. Acute kidney injury, possibly secondary to dehydration and acute tubular necrosis. 5. Right nephrolithiasis. 6. Left ureterolithiasis. 7. Dehydration. 8. Diabetes mellitus type 2. 9. Hypothyroidism. 10. Peripheral edema. Secondary Dx: 1.DM2 cc and HPI refer to H&P Hospital Course: ASSESSMENT: This is a 77-year-old man with: 1. Acute colitis. 2. Acute Crohn's exacerbation. 3. Hypertensive emergency. 4. Acute kidney injury, possibly secondary to dehydration and acute tubular necrosis. 5. Right nephrolithiasis. 6. Left ureterolithiasis. 7. Dehydration. 8. Diabetes mellitus type 2. 9. Hypothyroidism. 10. Peripheral edema. PLAN 1. Rehydrate the patient. 2. Antibiotics, he received Cipro and Flagyl. 3. Control blood pressure. Currently, blood pressure is improved down to 146/68. 4. Check hemoglobin A1c and lipid panel. 5. TSH is normal. 6. He is on SCD and PPI. 7. Disposition. If patient tolerates diet, theoretically he could go home today and followup closely outpatient in the next 2 or 3 days. GENARO and WBC improved; pt therefore d/c home, as symptoms improved. d/c time>35mins d/c place: home d/c meds; see mar condition: improving and stable f/u PCP 1 week Julio Cesar Loza MD, PhD.
== END 2018-10-06 22:20 | disposition home or self-care (01) ==
LOC: ER 01:43 → ERHOLD 05:46 → IMCU 09:15
PROVIDERS: ADMIT Internal Medicine; ATTEND Internal Medicine
DX: K52.9 Noninfective gastroenteritis and colitis, unspecified (principal); K50.90 Crohn's disease, unspecified, without complications; N20.1 Calculus of ureter; N20.0 Calculus of kidney; E03.9 Hypothyroidism, unspecified; E11.9 Type 2 diabetes mellitus without complications; I16.1 Hypertensive emergency; N17.9 Acute kidney failure, unspecified; E86.0 Dehydration; Z79.4 Long term (current) use of insulin
CPT/HCPCS: 36415; 74176; 80048; 80053; 80061; 81001; 82550; 82553; 82948; 83036; 84443; 84484; 85025; 99284; G0378; J0360; J0744; J1817; J2270; J2405; J7030; S0164